=== PATIENT | female | born 1990 | race Caucasian/White ===

== ENCOUNTER 2022-02-11 10:02 | Inpatient (IN) ==
[2022-02-11] MEDS ORDERED: LIDOCAINE 1% LOCAL 20 ML VIAL INFIL PRN (10:24)
[2022-02-11] MEDS ORDERED: OXYTOCIN 30 UNITS/500 ML BAG IV PRN ×2 (10:24→17:28)
[2022-02-11] MEDS ORDERED: PENICILLIN G POTASSIUM 6 MU in DEXTROSE 5% 250 ML IV STA (10:24)
--- NOTE | 2022-02-11 10:29 | History & Physical Report ---
Date of Service February 11, 2022 Assessment & Plan (1) Active labor at term: (2) Group beta Strep positive: (3) Obesity affecting : Plan admit, iv, labs. start pcn. epidural when pt desires. ? rom, will monitor. fhts categ 1. History of Present Illness Chief Complaint: labor Primary Care Provider: Marvin Henriquez MD 31yo at 39+wks zaida presents to L&D with above cc. She was in L&D overnight with ctx and was 2cm, came back this am with worsening ctx. Had mucus dc. No vb. +FM. PNC c/b 1. GBS pos urine 2. obesity PNL Rhpos, RI, GBS neg OBH: x 1 GYNH: nl paps, no stds Allergies Allergy/AdvReac Type Severity Reaction Status Date / Time Iodinated Contrast Media Allergy hives Verified 02/11/22 10:19 Sulfa (Sulfonamide Allergy hives Verified 02/11/22 10:19 Antibiotics) Home Medications Medication Instructions Recorded Confirmed Type cetirizine 10 mg capsule (Zyrtec) 10 mg PO DAILY PRN allergies 06/27/21 02/11/22 History prenat.vits,amish,pma-cuur-qhbkc 1 tab PO DAILY 06/27/21 02/11/22 History Patient History Surgical History (Updated 02/11/22 @ 10:18 by Nevin Mera RN) History of laparoscopic cholecystectomy History of removal of ovarian cyst Family History Mother Thyroid disease Social History (Updated 06/27/21 @ 10:04 by Maryann Skaggs) Smoking Status: Never smoker Second Hand Exposure: No; Hx Alcohol Use: No Hx Substance Use: No marital status: marital status details: Ramu (36) [phone] Current Living Situation: Spouse and Family Current Living Situation Comment: lives with spouse, and child, 1 dog, 2 cats, spouse to change litter. current occupational status: employed current occupation: [employer]. Feels Safe at Home: Yes Review of Systems as per Subjective / HPI Physical Exam Constitutional: WD/WN, vitals as above Respiratory: normal respiratory effort, lungs clear to auscultation Cardiovascular: Rate/Rhythm: regular rate and regular rhythm Gastrointestinal (Abdomen): soft gravid nt [id number]# Musculoskeletal: no edema nontender calves Neurologic: grossly normal Psychiatric: A+Ox3, euthymic affect Genitourinary: Manual OB Exam: + cervical dilation (palpable membrane) 5 cm, + cervical effacement 60% and + station -2 OB Exam Monitor Tracing: + external FHT monitor used, + external uterine monitor used (q3-4), + category I and + normal FHT variability before sve, i observed ? trickle of clear fluid. Results & Data ([facility]) Vital Signs (Past 12 Hours) Vital Signs Pulse BP 02/11/22 10:16 92 H 108/68 Coding Level of Care Code None Diagnoses Active labor at term Group beta Strep positive B95.1 Obesity affecting O99.210
[2022-02-11] MEDS: LACTATED RINGER'S 1,000 ML IV PRN ×2 (10:34→11:29)
[2022-02-11] MEDS ORDERED: fentaNYL citrate 100 MCG/2 ML VIAL ONE (10:38)
[2022-02-11] MEDS ORDERED: SODIUM CHLORIDE 0.9% INJ 10 ML VIAL ONE (10:38)
[2022-02-11] MEDS ORDERED: ePHEDrine sulfate 50 MG/ML AMP ONE (10:38)
[2022-02-11] MEDS ORDERED: BUPIVACAINE 0.25% 30 ML VIAL ONE (10:38)
[2022-02-11] MEDS ORDERED: fentaNYL 2MCG/ML ROPIVACAINE 1.25MG/ML 100 ML BAG EPI ONE (10:39)
[2022-02-11] MEDS ORDERED: LIDOCAINE 2%/EPINEPHRINE 1:200,000 20 ML SDV ONE (10:39)
[2022-02-11 11:01] LABS: Hematocrit (blood only) 34.4 % (34.1-44.9); Hemoglobin 11.9 g/dl (12.0-16.0); Mean Corpuscular Hemoglobin 30.1 pg (25.0-34.0); Mean Corpuscular Hgb Conc 34.6 g/dL (32.0-36.0); Mean Corpuscular Volume 87.1 fL (80.0-100.0); Mean Platelet Volume 11.3 fL (9.4-12.3); Platelet Count 234 K/uL (130-400); RDW Coefficient of Variation 13.8 % (11.5-14.5); RDW Standard Deviation 43.5 fL (36.4-46.3); Red Blood Count 3.95 M/uL (3.93-5.22); White Blood Count 13.95 K/ul (4.8-10.8)
[2022-02-11] MEDS ORDERED: diphenhydrAMINE 50 MG/ML VIAL IV PRN (11:22)
[2022-02-11] MEDS ORDERED: NALOXONE HCL 0.4 MG/1 ML VIAL/CARP IV PRN (11:22)
[2022-02-11] MEDS ORDERED: NALOXONE HCL 1 MG in SODIUM CHLORIDE 0.9% 1000ML 1,000 ML IV PRN (11:22)
[2022-02-11] MEDS ORDERED: ONDANSETRON INJ 2 MG/ML 2 ML VIAL IV PRN (11:22)
[2022-02-11] MEDS ORDERED: NALBUPHINE HCL INJ 10 MG/ML AMP IV PRN (11:22)
[2022-02-11] MEDS ORDERED: fentaNYL 2MCG/ML ROPIVACAINE 1.25MG/ML 100 ML BAG EPI PRN (11:22)
[2022-02-11] MEDS ORDERED: ePHEDrine sulfate 50 MG/ML AMP IV PRN (11:22)
--- NOTE | 2022-02-11 11:28 | Anesthesiology Consultation ---
Date of Service February 11, 2022 Assessment & Plan Chart Review Chart Review: Patient NOT seen in Pre Admission Testing and Acceptable Risk for Labor Epidural Consults Requested none ASA ASA2 Proposed Anesthesia Anesthesia Type: Labor Epidural and CSE Risk / Benefits Reviewed With: PT / POA / Parent / Guardian, Accepts Plan and Informed Consent Obtained History Height/Weight Height: 5 ft 5 in Weight: 99.79 kg Allergies Allergy/AdvReac Type Severity Reaction Status Date / Time Iodinated Contrast Media Allergy hives Verified 02/11/22 10:19 Sulfa (Sulfonamide Allergy hives Verified 02/11/22 10:19 Antibiotics) Medications Home Medications Medication Instructions Recorded Confirmed Last Taken cetirizine 10 mg capsule (Zyrtec) 10 mg PO DAILY PRN allergies 06/27/21 02/11/22 Unknown prenat.vits,amish,rdn-gfyo-vrrez 1 tab PO DAILY 06/27/21 02/11/22 02/10/22 08:00 Active Medications Generic Name Dose Route Start Last Admin Trade Name Freq PRN Reason Stop Dose Admin Lactated Ringer's 1,000 mls @ 125 mls/hr 02/11/22 10:24 02/11/22 10:34 Lr IV 02/13/22 10:23 999 mls/hr .Q8H PRN Administration L&D Protocol Protocol NPO Date Last Intake of Fluids: 02/11/22 Time Last Intake of Fluids: 10:00 Date Last Intake of Solids: 02/11/22 Time Last Intake of Solids: 08:00 Exercise / Class Metabolic Activity II 4-5 Yardwork/Stairs/Walk up hill Past Family History Family History Mother Thyroid disease Past Surgical History Surgical History History of laparoscopic cholecystectomy History of removal of ovarian cyst Past Anesthesia History No Hx of Anesthesia Complications and No Family Hx of Anesthesia Complications History of PONV No Hx of PONV and No Hx of Motion Sickness Social History Smoking Status: Never smoker Hx Alcohol Use: No Hx Substance Use: No Review of Systems no chest pain or sob Physical Exam Vital Signs Last Vital Signs Pulse 98 H 02/11/22 11:21 BP 108/68 02/11/22 10:16 Pulse Ox 98 02/11/22 11:21 T 36.5 RR 20 ENMT Mouth: no TMJ abnormality Thyromental Distance: > or= 3.5 Finger Breadths Mallampati Class: II Neck normal visual inspection Respiratory normal respiratory effort Auscultation: lungs clear to auscultation bilaterally Cardiovascular Rate/Rhythm: regular rate and regular rhythm Musculoskeletal Spine: normal cervical ROM Neurologic moves all extremities Psychiatric Orientation: alert and oriented x 3 Testing Laboratory Results 02/11/22 10:42
[2022-02-11] MEDS ORDERED: PENICILLIN G POTASSIUM 3 MU in DEXTROSE 5% 100 ML IV PRN (13:24)
--- NOTE | 2022-02-11 15:52 | Labor Progress Brief Note ---
Date of Service February 11, 2022 Subjective feeling pressure Assessment & Plan (1) Active labor at term: (2) Group beta Strep positive: Plan good cx change. arom forebag. fhts categ 1. pcn for gbs. Admission and Anticipated Discharge Date Admission Date: February 11, 2022 Physical Exam Constitutional: WD/WN, vitals as above Genitourinary: Manual OB Exam: + cervical dilation (8-9), + cervical effacement 80%, + station 0 and + amniotic fluid (forebag arom) clear OB Exam Monitor Tracing: + external FHT monitor used, + external uterine monitor used (q2), + category I and + normal FHT variability Results & Data ([facility]) Vital Signs (Past 12 Hours) Vital Signs Temp Pulse Resp BP Pulse Ox 02/11/22 15:46 98 02/11/22 15:46 99 H 02/11/22 15:45 93 H 02/11/22 15:45 115/62 02/11/22 15:30 20 02/11/22 15:30 20 02/11/22 15:41 97 02/11/22 15:41 100 H 02/11/22 15:36 98 02/11/22 15:36 97 H 02/11/22 15:31 96 02/11/22 15:31 96 H 02/11/22 15:29 112 H 02/11/22 15:29 103/58 L 02/11/22 15:26 95 02/11/22 15:26 86 02/11/22 15:21 95 02/11/22 15:21 100 H 02/11/22 15:16 96 02/11/22 15:16 105 H 02/11/22 15:15 95 H 02/11/22 15:15 106/59 L 02/11/22 15:11 95 02/11/22 15:11 88 02/11/22 15:06 97 02/11/22 15:06 95 H 02/11/22 15:00 20 02/11/22 15:00 98.4 F 20 02/11/22 15:01 98 02/11/22 15:01 98 H 02/11/22 14:59 100 H 02/11/22 14:59 97/56 L 02/11/22 14:56 96 02/11/22 14:56 94 H 02/11/22 14:51 94 02/11/22 14:51 114 H 02/11/22 14:30 20 02/11/22 14:30 20 02/11/22 14:46 95 02/11/22 14:46 102 H 02/11/22 14:44 117 H 02/11/22 14:44 97/53 L 02/11/22 14:41 83 L 02/11/22 14:41 110 H 02/11/22 14:36 97 02/11/22 14:36 114 H 02/11/22 14:31 94 02/11/22 14:31 107 H 02/11/22 14:30 90 02/11/22 14:30 100/55 L 02/11/22 14:26 95 02/11/22 14:26 111 H 02/11/22 14:21 94 02/11/22 14:21 112 H 02/11/22 14:16 94 02/11/22 14:16 93 H 02/11/22 14:14 93 H 02/11/22 14:14 91/55 L 02/11/22 14:11 97 02/11/22 14:11 117 H 02/11/22 13:30 20 02/11/22 13:30 20 02/11/22 14:06 92 02/11/22 14:06 91 H 02/11/22 14:00 20 02/11/22 14:00 20 02/11/22 13:00 98.2 F 02/11/22 14:01 96 02/11/22 14:01 115 H 02/11/22 14:00 99 H 02/11/22 14:00 93/52 L 02/11/22 13:56 94 02/11/22 13:56 90 02/11/22 13:51 94 02/11/22 13:51 101 H 02/11/22 13:46 94 02/11/22 13:46 83 02/11/22 13:45 97 H 02/11/22 13:45 102/59 L 02/11/22 13:41 96 02/11/22 13:41 92 H 02/11/22 13:36 94 02/11/22 13:36 84 02/11/22 13:31 97 02/11/22 13:31 98 H 02/11/22 13:31 83 L 10/05/22 13:31 110 H 02/11/22 13:26 94 02/11/22 13:26 94 H 02/11/22 13:21 90 02/11/22 13:21 91 H 02/11/22 13:16 93 02/11/22 13:16 83 02/11/22 13:14 95 H 02/11/22 13:14 104/59 L 02/11/22 13:00 20 02/11/22 13:00 20 02/11/22 13:11 91 02/11/22 13:11 86 02/11/22 13:06 93 02/11/22 13:06 102 H 02/11/22 13:01 92 02/11/22 13:01 86 02/11/22 12:59 97 H 02/11/22 12:59 102/55 L 02/11/22 12:56 91 02/11/22 12:56 90 02/11/22 12:51 96 02/11/22 12:51 90 02/11/22 12:46 94 02/11/22 12:46 103 H 02/11/22 12:46 93 H 02/11/22 12:46 98/62 L 02/11/22 12:41 90 02/11/22 12:41 87 02/11/22 12:36 95 02/11/22 12:36 102 H 02/11/22 12:30 18 02/11/22 12:30 18 02/11/22 12:31 95 02/11/22 12:31 93 H 02/11/22 12:31 99/59 L 02/11/22 12:26 91 02/11/22 12:26 83 02/11/22 12:21 95 02/11/22 12:21 98 H 02/11/22 12:16 96 02/11/22 12:16 88 02/11/22 12:00 20 02/11/22 12:00 20 02/11/22 12:13 92 H 02/11/22 12:13 112/55 L 02/11/22 12:11 96 02/11/22 12:11 77 02/11/22 12:06 97 02/11/22 12:06 86 02/11/22 12:06 100/60 02/11/22 12:01 100 02/11/22 12:01 87 02/11/22 12:02 86 02/11/22 12:02 96/64 L 02/11/22 11:56 98 02/11/22 11:56 81 02/11/22 11:56 103/60 02/11/22 11:51 100 02/11/22 11:51 92 H 02/11/22 11:50 87 02/11/22 11:50 111/59 L 02/11/22 11:48 85 02/11/22 11:48 103/62 02/11/22 11:46 100 02/11/22 11:46 92 H 02/11/22 11:46 99/59 L 02/11/22 11:40 18 02/11/22 11:40 18 02/11/22 11:45 20 02/11/22 11:45 20 02/11/22 11:44 81 02/11/22 11:44 105/59 L 02/11/22 11:30 20 02/11/22 11:30 98.4 F 20 02/11/22 11:41 100 02/11/22 11:41 80 02/11/22 11:40 85 02/11/22 11:40 111/63 02/11/22 11:38 77 02/11/22 11:38 104/62 02/11/22 11:36 100 02/11/22 11:36 99 H 02/11/22 11:31 100 02/11/22 11:31 101 H 02/11/22 11:28 89 L 02/11/22 11:28 102 H 02/11/22 11:26 98 02/11/22 11:26 100 H 02/11/22 11:21 98 02/11/22 11:21 98 H 02/11/22 11:16 96 02/11/22 11:16 92 H 02/11/22 11:11 99 02/11/22 11:11 96 H 02/11/22 11:06 95 02/11/22 11:06 107 H 02/11/22 11:01 95 02/11/22 11:01 84 02/11/22 10:56 96 02/11/22 10:56 86 02/11/22 10:53 94 02/11/22 10:53 93 H 02/11/22 10:51 96 02/11/22 10:51 110 H 02/11/22 10:16 92 H 108/68 Coding Level of Care Code None Diagnoses Active labor at term Group beta Strep positive B95.1
--- NOTE | 2022-02-11 17:09 | Delivery Summary ---
Vaginal Delivery Summary Date of Service February 11, 2022 Vaginal Delivery Summary and 2nd Degree LAC The patient dilated to complete and pushed to deliver a viable female infant Apgars 8 and 9 via from LOP position over 2nd degree perineal laceration. Mouth and nose bulb suctioned at perineum. Shoulders and body delivered with ease. was vigorous and crying at . Cord clamped at 30 seconds of life and infant to maternal abdomen where the cord was then doubly clamped and cut. Placenta delivered spontaneously and intact, three-vessel cord. Hemostasis achieved with dilute pitocin and uterine massage and drainage of the bladder for approximately 300 cc under sterile conditions. Cervix and sulci intact. EBL 300 cc. Mother and baby in stable recovery. [facility] Vaginal Delivery Charge Delivery Type Details: and 2nd Degree LAC
[2022-02-11] MEDS ORDERED: OXYTOCIN 20 UNITS in LACTATED RINGER'S 1,000 ML IV SCH (17:28)
[2022-02-11] MEDS ORDERED: DIPHTHERIA/TETANUS/PERTUSSIS 0.5 ML SYR/VIAL IM ONE (17:28)
[2022-02-11] MEDS ORDERED: BENZOCAINE 20% AER SPR 82.5 GM CAN EXT PRN (17:28)
[2022-02-11] MEDS ORDERED: ACETAMINOPHEN 325 MG TAB PO PRN (17:28)
[2022-02-11] MEDS ORDERED: oxyCODONE/ACETAMINOPHEN 5mg/325mg TAB PO PRN (17:28)
[2022-02-11] MEDS ORDERED: HYDROCORTISONE ACETATE 25 MG SUPP PR PRN (17:28)
[2022-02-11] MEDS ORDERED: CETIRIZINE HCL 10 MG TABLET PO PRN (17:38)
--- NOTE | 2022-02-11 18:15 | Anesthesia Procedure Note ---
Date of Service February 11, 2022 Anesthesia Post Epidural Note Vital Signs Vital Signs: Temp Pulse Resp BP Pulse Ox 36.9 C 93 H 18 93/52 L 96 02/11/22 17:06 02/11/22 18:07 02/11/22 18:06 02/11/22 18:07 02/11/22 16:56 Notes Mental Status: alert / awake / arousable and participated in evaluation Nausea / Vomiting: adequately controlled Pain: adequately controlled Airway Patency, RR, SpO2: stable & adequate BP & HR: stable & adequate Hydration State: stable & adequate Neuraxial Anesthesia: was administered and sensory block is resolving Anesthetic Complications: no major complications apparent and Pt Satisfied with anesthetic care Epidural: Removed without complications and With tip intact
[2022-02-11] MEDS: IBUPROFEN 600 MG TAB PO PRN (19:10)
[2022-02-11] MEDS: DOCUSATE SODIUM 100 MG CAP PO SCH (20:55)
[2022-02-12] MEDS: IBUPROFEN 600 MG TAB PO PRN ×4 (00:44→19:49)
--- NOTE | 2022-02-12 07:19 | Obstetrical Progress Note ---
Date of Service February 12, 2022 Assessment & Plan (1) care following vaginal delivery: Plan doing well ppd#1. s/p adequate trt for gbs. will plan dc home. f/u 6 wks pp check. instructions reviewed. Day #:: 1 Subjective Ambulation: ambulating normally Voiding: no voiding problems Diet Tolerance:: regular diet Lochia:: Moderate Feeding Type:: breast feeding denies pain issues. Constitutional: + as per Subjective / HPI Physical Exam Constitutional WD/WN, vitals as above Respiratory normal respiratory effort, lungs clear to auscultation Cardiovascular Rate/Rhythm: regular rate and regular rhythm Gastrointestinal (Abdomen) Inspection/Auscultation: abdomen normal to inspection Percussion/Palpation: abdomen soft Fundus firm 2cm down Musculoskeletal nt calves no edema Neurologic grossly normal Psychiatric A+Ox3, euthymic affect Results & Data ([facility]) Vital Signs (Past 12 Hours) Vital Signs Temp Pulse Resp BP 02/12/22 04:30 97.5 F L 81 18 108/70 02/12/22 00:45 97.7 F 94 H 18 109/69 02/11/22 19:50 97.7 F 92 H 18 115/72
[2022-02-12] MEDS: PRENATAL VITAMIN 1 TAB PO SCH (08:24)
[2022-02-12] MEDS: DOCUSATE SODIUM 100 MG CAP PO SCH ×2 (08:24→19:49)
[2022-02-13] MEDS: IBUPROFEN 600 MG TAB PO PRN ×2 (00:18→07:50)
--- NOTE | 2022-02-13 07:05 | Obstetrical Progress Note ---
Date of Service <Marsha JohnsonDO leeroy - Last Filed: 02/13/22 07:05> February 13, 2022 Assessment & Plan <Marsha JohnsonjeromelindaDO - Last Filed: 02/13/22 07:05> (1) care following vaginal delivery: Patient is PPD 2 s/p and doing well. - Eating well, voiding well, ambulating well - Vitals reviewed and within normal limits - Pain well controlled with analgesics - OOB, ambulation, diet progression as tolerated - Blood type: A+, GBS pos, rubella immune - Plan to discharge today - After discharge, 6 [address] up [address] Juan <Krzysztof Lynn MD - Last Filed: 02/13/22 07:33> (1) care following vaginal delivery: Subjective <Marsha JohnsonDO leeroy - Last Filed: 02/13/22 07:05> Patient is a 31 yo female who is now PPD #2 following spontaneous vaginal delivery at 39+4 weeks. Reports feeling well this morning. She denies abdominal cramping and 0/10 pain well managed on analgesics. Voiding without issue. Tolerating regular meals overnight and able to ambulate some. She has passed gas and had bowel movements. Persistent lochia with some improvement this morning. Currently breast feeding. Review of Systems Denies fever, chills, sweats. Denies SOB, difficulty breathing, chest pain, palpitations, and chest pressure. Denies breast pain. Denies dysuria. Denies headache or changes in vision. Physical Exam <Marsha LucianoAnnamaria Ramirez DO - Last Filed: 02/13/22 07:05> General: Alert and oriented. No acute distress. CV: Regular rate and rhythm. No murmurs. Respiratory: CTA bilaterally. No rhonchi, wheezes, or crackles. No increased wor k of breathing. Abdomen: Positive bowel sounds. Soft, nontender, non distended. Uterus: Fundus firm and palpable 4 cm below the umbilicus. Lower extremities: No LE edema. No deep calf pain. Ines's negative bilaterally. Results & Data ([facility]) <Marsha LucianoAnnamaria Ramirez DO - Last Filed: 02/13/22 07:05> Vital Signs (Past 12 Hours) Vital Signs Temp Pulse Resp BP 02/13/22 00:20 36.5 C 80 18 104/67 02/12/22 19:45 36.5 C 93 H 18 109/73 <Krzysztof Lynn MD - Last Filed: 02/13/22 07:33> Co-Signing Physician Notes Patient seen and evaluated and agree with the above findings and plan. Stable for discharge. Resident Activity Tracking <Marsha Ramirez DO - Last Filed: 02/13/22 07:05> Resident Involvement: Resident Care Provided Care Provided: OB Delivery
[2022-02-13] MEDS: DOCUSATE SODIUM 100 MG CAP PO SCH (07:50)
[2022-02-13] MEDS: PRENATAL VITAMIN 1 TAB PO SCH (07:50)
== END 2022-02-13 13:25 | disposition home or self-care (01) | DRG 807 ==
LOC: OPB 10:02 → 4S1 10:06 → 4E2 19:30
DX: Z37.0 Single live birth; O70.1 Second degree perineal laceration during delivery; O99.214 Obesity complicating childbirth; Z91.041 Radiographic dye allergy status; Z88.2 Allergy status to sulfonamides; Z3A.39 39 weeks gestation of pregnancy; O99.824 Streptococcus B carrier state complicating childbirth